=== PATIENT | female | born 1955 | race Caucasian/White ===

== ENCOUNTER 2016-11-29 08:26 | Inpatient (IN) ==
[2016-11-22 12:08] LABS: Basophils # (Auto) 0 K/mcL (0.0-0.3); Basophils % (Auto) 0.5 % (0.0-2.0); Eosinophils # (Auto) 0.1 K/mcL (0.0-0.7); Eosinophils % (Auto) 0.9 % (0.0-7.0); Granulocytes % (Auto) 54.7 % (38.0-78.0); Lymphocytes # (Auto) 2.2 K/mcL (1.5-4.8); Lymphocytes % (Auto) 35.6 % (15.5-49.0); Mean Corpuscular HGB Conc 33.1 g/dL (31.0-36.0); Mean Corpuscular Hemoglobin 28.4 pg (26.0-34.0); Monocytes # (Auto) 0.5 K/mcL (0.1-0.9); Monocytes % (Auto) 8.3 % (1.0-12.0); Platelet Count 284 K/mcL (140-440); RBC 4.54 M/mcL (4.00-5.20); Red Cell Distribution Width 13.7 % (11.5-14.5)
[2016-11-22 12:12] LABS: Blood Urea Nitrogen 9 mg/dl (8-23)
[2016-11-22 13:00] LABS: Appearance,Urine CLEAR; Bacteria,Urine 0 /hpf (0); Bilirubin,Urine NEG (NEG); Color,Urine YELLOW; Glucose,Urine (UA) NEGATIVE (NEG); Leukocyte Esterase,Urine NEG /uL (NEG); Mucus,Urine FEW /hpf (0); Nitrate,Urine NEG (NEG); Protein,Urine NEG (NEG); Specific Gravity,Urine 1.011 (1.000-1.035); Urine Blood 0.03 mg/dL (<0.03); Urine RBC < 1 /hpf (0-1); Urine Squamous Epithelial Cell 1 /hpf (0-4); Urine WBC < 1 /hpf (0-4); Urobilinogen,Urine NEG (NEG)
[~2016-11-29 08:26] MED LIST: CELECOXIB 200 MG CAPSULE PO SCH; PREGABALIN 75 MG CAPSULE PO SCH; ceFAZolin 1 GM VIAL IV SCH; oxyCODONE 10 MG TAB.ER.12H PO SCH
[2016-11-29] MEDS ORDERED: KETOROLAC 30 MG, ROPIVACAINE HCL/PF 49.5 ML, EPINEPHrine 0.5 MG, 0.9 % SODIUM CHLORIDE ... IJ ONE (09:00)
[2016-11-29] MEDS ORDERED: MIDAZOLAM 5 MG/5 ML VIAL IV ONE (11:50)
[2016-11-29] MEDS ORDERED: PROPOFOL 200 MG/20 ML VIAL IV ONE (11:50)
[2016-11-29] MEDS ORDERED: ROPIVACAINE HCL/PF 30 ML VIAL IJ ONE (11:50)
[2016-11-29] MEDS ORDERED: GLYCOPYRROLATE 0.2 MG/ML VIAL IV ONE (11:50)
[2016-11-29] MEDS ORDERED: DEXAMETHASONE 10 MG/ML VIAL IV ONE (11:50)
[2016-11-29] MEDS ORDERED: LIDOCAINE HCL/PF 100 MG/5 ML SYRINGE IV ONE (11:50)
[2016-11-29] MEDS ORDERED: PHENYLEPHRINE 10 MG/ML VIAL IV ONE (11:50)
[2016-11-29] MEDS ORDERED: ONDANSETRON 4 MG/2 ML VIAL IV ONE (11:50)
[2016-11-29] MEDS ORDERED: TRANEXAMIC ACID 1,000 MG/10 ML VIAL IV ONE (11:50)
[2016-11-29] MEDS ORDERED: diphenhydrAMINE 50 MG/ML VIAL IV ONE (11:50)
[2016-11-29] MEDS ORDERED: PROMETHAZINE 25 MG/ML VIAL IV PRN (12:58)
[2016-11-29] MEDS ORDERED: MEPERIDINE 25 MG/ML SYRINGE IV PRN (12:58)
[2016-11-29] MEDS ORDERED: FLUMAZENIL 0.1 MG/ML ML IV PRN (12:58)
[2016-11-29] MEDS ORDERED: HYDROmorphone 2 MG/ML SYRINGE IV PRN (12:58)
[2016-11-29] MEDS ORDERED: ONDANSETRON 4 MG/2 ML VIAL IV PRN ×2 (12:58→13:43)
[2016-11-29] MEDS ORDERED: fentaNYL 100 MCG/2 ML VIAL IV PRN (12:58)
[2016-11-29] MEDS ORDERED: METOPROLOL TARTRATE 5 MG/5 ML VIAL IV PRN (12:58)
[2016-11-29] MEDS ORDERED: METHOCARBAMOL 1,000 MG/10 ML VIAL IV PRN (12:58)
[2016-11-29] MEDS ORDERED: IPRATROPIUM/ALBUTEROL 3 ML AMPUL.NEB NEB PRN (12:58)
[2016-11-29] MEDS ORDERED: BENZOCAINE/MENTHOL 1 LOZENGE PO PRN ×2 (12:58→13:43)
[2016-11-29] MEDS ORDERED: NALOXONE HCL 0.4 MG/ML VIAL IV PRN (12:58)
[2016-11-29] MEDS ORDERED: diphenhydrAMINE 50 MG/ML VIAL IV PRN (12:58)
[2016-11-29] MEDS ORDERED: ATROPINE SULFATE 0.4 MG/ML VIAL IV PRN (12:58)
[2016-11-29] MEDS ORDERED: ePHEDrine 50 MG/ML AMPUL IV PRN (12:58)
[2016-11-29] MEDS ORDERED: LACTATED RINGERS 1,000 ML IV SCH (13:00)
[2016-11-29] MEDS ORDERED: TRANEXAMIC ACID 1,000 MG/10 ML VIAL IV SCH (13:43)
[2016-11-29] MEDS ORDERED: BISACODYL 10 MG SUPP.RECT PR PRN (13:43)
[2016-11-29] MEDS ORDERED: POLYETHYLENE GLYCOL 3350 17 GM PACKET PO PRN (13:43)
[2016-11-29] MEDS ORDERED: MAGNESIUM HYDROXIDE 30 ML ORAL.SUSP PO PRN (13:43)
[2016-11-29] MEDS ORDERED: FLEETS ADULT ENEMA PR PRN (13:43)
[2016-11-29] MEDS ORDERED: LORATADINE 10 MG TABLET PO PRN (13:47)
[2016-11-29] MEDS ORDERED: OXYMETAZOLINE 1 SPRAY BOTTLE NAS PRN (13:47)
--- NOTE | 2016-11-29 13:50 | Brief Operative Note ---
Date of procedure: 11/29/16 Pre-op diagnosis: R knee DJD Post-op diagnosis: same Procedure: Right robotic assisted total knee arthroplasty Grafts/Implants: Yes (Reading CR 4 femur, 4 tibia, 11mm tibial insert, 33 patella) Anesthesia: spinal, GLMA Findings: severe arthritis Complications: none Surgeon: Jonatan Rodas Typesetting Supervisor: Enrike Hayes Estimated blood loss (cc): 30 Specimens Removed/Pathology: none sent Condition: stable Disposition: PACU
--- NOTE | 2016-11-29 15:09 | XRay Report ---
HISTORY: Reason for Exam:Post-op total knee. FINDINGS: There is a well positioned total knee prosthesis. No fractures present and there are no abnormal soft tissue calcifications. IMPRESSION: Well-positioned right knee prosthesis Interpreted and Authenticated by: Tom Ayers 11/29/16
--- NOTE | 2016-11-29 15:22 | Operative Note ---
DATE OF OPERATION: 11/29/2016 PREOPERATIVE DIAGNOSIS: Right knee severe osteoarthritis. POSTOPERATIVE DIAGNOSIS: Right knee severe osteoarthritis. PROCEDURE PERFORMED: Right robotic-assisted total knee arthroplasty using the [employer]a Triathlon size 4 cruciate retaining femoral component, size 4 tibial baseplate, an 11 mm X3 tibial insert with a 33 mm patellar button. SURGEON: Jonatan Rodas MD. NUTRITION AIDE: Ez Hayes PA-C. ANESTHESIA: Spinal plus general. DRAINS: None. SPECIMENS: Bone cuts, which were discarded. BLOOD LOSS: 30 mL. POSTOPERATIVE CONDITION: Stable. INDICATIONS FOR SURGERY: This is a 61-year-old female who has had progressive worsening knee pain. She had a previous knee arthroscopy and radiographs showed rapid joint space collapse with [id number] lateral compartment arthrosis, as well as significant patellofemoral degenerative changes. FINDINGS AT SURGERY: There was full-thickness cartilage loss off the lateral compartment. The patella had also full-thickness cartilage loss. Post implantation showed good patellar tracking, joint stability and limb alignment. PROCEDURE IN DETAIL: The patient had been seen preoperatively and informed consent had been obtained after discussion of risks and benefits of surgery. Risks including, but not limited to, bleeding, possibly requiring transfusion; infection, possibly requiring implant removal and prolonged IV antibiotics; injury to nerves, blood vessels, and other surrounding structures; anesthetic risks; incomplete or no resolution of symptoms; stiffness; weakness; pain; instability; DVT and pulmonary embolus risks; the possibility of needing further surgery. She understood these risks and wished to proceed. Correct operative site was marked and then patient received spinal anesthesia. She was then taken to the operating room and LMA general given. The right lower extremity was carefully prepped and draped in normal sterile fashion and a time-out was performed verifying patient name, operative site, and plan. Esmarch was used to exsanguinate the extremity and tourniquet was inflated. A midline incision was made with a scalpel through skin and subcutaneous tissue. Irrisept was irrigated and then a medial parapatellar arthrotomy made. Subperiosteal exposure done of the anterior medial tibia and then the distal anterior cortex of the femur. The retropatellar fat pad was excised. We then made stab incisions over the femur and tibia and drilled two pins bicortically in both the femur and the tibia. We then placed our arrays. Femoral checkpoint and tibial checkpoint was placed. We then registered our hip center of rotation, as well as medial and lateral malleoli. The femoral and tibial check points were double checked. We then used the blue probe to register our data points. After this was completed, we then removed osteophytes. We then checked our flexion and extension gaps. We adjusted implant alignment to equalize these around 19 mm. Once we were satisfied with our position, we went ahead and started with bone cuts using the robotic assisted saw. After bone cuts were completed, we marked our alignment points for the tibial baseplate and then tibial trial was pinned into place. We did our boss reamer and keel punch to prepare and then went ahead and placed an 11 insert. We then impacted our femoral trial and pinned this into place. We drilled our peg holes. The knee was taken into extension, and there was full extension without laxity. We then prepared the patella. Using a freehand technique we removed 8 mm of bone. We sized this to a 33, which was medialized maximally and drilled. Trial was placed and lateral facetectomy performed. We then checked our patellar tracking, which was excellent with no tilt or subluxation, so we removed all of our trial implants. Definitive implants were opened. We irrigated copiously. We irrigated with Irrisept while cement was being mixed. After waiting a minute, we irrigated copiously with saline. Antibiotic cement was then placed on the tibia and the tibia implant was impacted followed by the femur. We did use a CO2 gun to a clean and dry the bone surface. We then placed an [address] The knee was placed in full extension. Excess cement removed. The patellar button was cemented. We then filled the joint with Irrisept, and while this was sitting we injected the pericapsular and subcutaneous tissues with pain cocktail. We then suctioned out the Irrisept and copiously pulse lavaged with saline until cement had fully hardened. We then flexed the knee up and removed trial implant, removed any excess cement. Remaining pain cocktail was injected into the posteromedial capsule and then an 11 mm insert was impacted and carefully verified to be fully seated. We then placed the knee in about 45 degrees of flexion and irrigated the joint with Irrisept. A #2 FiberWire interrupted [id number]-ahstd was placed in the superior quadrant around the patella, inferiorly was #1 Vicryl [id number]. Running #1 Vicryl was used for patellar tendon and quad tendon. We then did a final Irrisept irrigation, after a minute final saline irrigation, and then 2-0 Monocryl for subcutaneous and catherine for skin. Xeroform and sterile dressing were applied and tourniquet was released. The patient was then awakened, extubated, and transferred to recovery in stable condition. [email or web address] Job ID: [id number] Doc ID: [id number] Jonatan Rodas MD
[2016-11-29] MEDS: 0.9 % SODIUM CHLORIDE 1,000 ML IV SCH ×2 (15:39→16:30)
[2016-11-29] MEDS: 0.9 % SODIUM CHLORIDE 10 ML SYRINGE IV SCH ×2 (15:40→22:26)
[2016-11-29] MEDS: oxyCODONE/APAP 5/325MG TABLET PO PRN ×2 (16:16→20:53)
[2016-11-29] MEDS: KETOROLAC 30 MG/ML VIAL IV SCH ×2 (17:51→23:46)
[2016-11-29] MEDS: ceFAZolin 1 GM VIAL IV SCH (19:27)
[2016-11-29] MEDS: ASPIRIN 325 MG ENTERIC COATED TABLET PO SCH (20:53)
[2016-11-29] MEDS: DOCUSATE SODIUM 100 MG CAPSULE PO SCH (20:53)
[2016-11-29] MEDS ORDERED: SENNOSIDES 1 TABLET PO SCH (21:00)
[2016-11-30] MEDS: oxyCODONE/APAP 5/325MG TABLET PO PRN ×2 (01:06→05:13)
[2016-11-30] MEDS: 0.9 % SODIUM CHLORIDE 1,000 ML IV SCH ×2 (01:06→06:12)
[2016-11-30] MEDS: ceFAZolin 1 GM VIAL IV SCH (03:32)
[2016-11-30] MEDS: KETOROLAC 30 MG/ML VIAL IV SCH ×2 (05:12→12:18)
[2016-11-30] MEDS: 0.9 % SODIUM CHLORIDE 10 ML SYRINGE IV SCH (05:19)
--- NOTE | 2016-11-30 07:57 | Discharge Summary ---
Ortho Discharge - TKA - Patient Instructions Diet: Regular Diet Activity: activity as tolerated, weight bearing as tolerated Total Knee Protocol: For Total Knee: Start ROM AMADO with stationary bike or rocking chair. Work on gaining full extension of knee. Posterior dislocation precautions provided. Hip abductor strengthening and gait training instructions provided. Apply Cryocuff as instructed. Dressing Care: Aquacel Ag - leave on for 5 days Patient Education: Total Knee Replacement (DC) Additional Instructions: Discharge Instructions: Do the exercises at home that physical therapy gave you. Take your prescription, photo ID, insurance cards, and current medication list with you to your first physical therapy appointment. 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 Weight bearing as tolerated. You have Dermabond (a dressing with a mesh-like appearance), leave open to air. You may start showering on post op day #2. To avoid constipation while taking any narcotic pain medication, take an over the counter stool softener/laxative. Use your Cryocuff or ice packs as directed, on for 20 minutes at a time throughout the day. This and elevation will help with pain and swelling. Call your physician for fevers above 100.5 or pain not controlled by medication. Your prescriptions are with your discharge information. Some medications were electronically transmitted to your pharmacy of choice. - Follow Up Plan Follow Up Appointments: Jonatan Rodas MD [Physician] - Disposition: Home, Self-Care Prognosis: Good Rehab Potential: Good - Orders For Discharge Additional Discharge Orders: Physical Therapy at Discharge - TKA Location: Determined By Patient Toilet Riser Discharge Order Location: Determined By Patient Walker Location: Determined By Patient
--- NOTE | 2016-11-30 08:40 | Orthopedic Progress Note ---
Subjective Patient information: Note initiated : 11/30/16 at 8:38 am Service Date, if different from initiated Date: [] Patient: Neri Chapman 61 y/o F admitted on 11/29/16 for Right Total Knee Arthroplasty- Robotic *!commercial artist lettering!*. Chief Complaint: [] Principal diagnosis: s/p R TKA Interval history: pain controlled with orals Objective Vital signs: Vital Signs Temp Pulse Pulse Resp BP BP Pulse Ox 11/30/16 07:45 97.8 F 16 112/75 95 11/30/16 07:19 58 L 96 11/30/16 03:30 97.9 F 73 16 114/78 94 11/30/16 00:00 97.6 F 65 16 127/85 96 11/29/16 20:00 95.1 F L 92 H 16 137/79 95 11/29/16 18:00 89 14 135/86 96 11/29/16 17:25 64 14 128/65 99 11/29/16 17:11 94 11/29/16 17:05 63 14 120/82 97 11/29/16 16:35 72 16 129/85 100 11/29/16 16:00 97.3 F 14 128/68 100 11/29/16 15:50 69 14 122/69 100 11/29/16 15:35 73 14 121/71 100 11/29/16 15:20 97.3 F 79 12 120/81 100 11/29/16 15:06 97.2 F 92 H 17 140/77 94 11/29/16 14:58 92 H 16 137/93 99 11/29/16 14:43 90 16 130/79 100 11/29/16 14:28 93 H 12 137/80 100 11/29/16 14:13 94 H 14 161/72 98 11/29/16 14:08 98.2 F 105 H 16 133/84 97 Intake and Output 11/29/16 11/30/16 11/30/16 21:59 05:59 13:59 Intake Total 2646 / 2646 1000 / 1000 1399 / 1399 Output Total 750 / 750 875 / 875 300 / 300 Balance 1896 / 1896 125 / 125 1099 / 1099 Intake: IV 1806 / 1806 1000 / 1000 679 / 679 Sodium Chloride 0.9% 1, 106 / 106 1000 / 1000 679 / 679 000 ml @ 125 mls/hr IV . Q8H ANTHONY Rx#:[id number] Lactated Ringers 1,000 ml 1700 / 1700 @ 20 mls/hr IV .Q24H ANTHONY Rx#:[id number] Oral 840 / 840 0 / 0 720 / 720 Output: Void Amount 750 / 750 875 / 875 300 / 300 Other: Meal apple sauce cup apple sauce cup Breakfast Percent of Meal Consumed 100% 100% 100% # Voids 1 1 1 Weight 228 lb Intake & Output: Intake & Output 11/29/16 11/30/16 11/30/16 21:59 05:59 13:59 Intake Total 2646 / 2646 1000 / 1000 1399 / 1399 Output Total 750 / 750 875 / 875 300 / 300 Balance 1896 / 1896 125 / 125 1099 / 1099 Weight 228 lb Intake: IV 1806 / 1806 1000 / 1000 679 / 679 Sodium Chloride 0.9% 1, 106 / 106 1000 / 1000 679 / 679 000 ml @ 125 mls/hr IV . Q8H ANTHONY Rx#:[id number] Lactated Ringers 1,000 ml 1700 / 1700 @ 20 mls/hr IV .Q24H ANTHONY Rx#:[id number] Oral 840 / 840 0 / 0 720 / 720 Output: Void Amount 750 / 750 875 / 875 300 / 300 Other: Meal apple sauce cup apple sauce cup Breakfast Percent of Meal Consumed 100% 100% 100% # Voids 1 1 1 Dressing: Yes clean, Yes dry, Yes intact - Labs CBC & BMP: 11/30/16 06:09 11/22/16 10:46 Labs: Orthopedic Labs 11/22/16 10:46 PT 12.9 INR 1.0 11/30/16 11/22/16 06:09 10:46 Hgb 11.8 L 12.9 Hct 36.2 39.0 Assessment and Plan (1) S/P total knee arthroplasty POD#1 s/p R TKA-stable -poss d/c home today Status: Acute
[2016-11-30] MEDS ORDERED: CALCIUM W/VIT D3 500 MG TABLET PO SCH (09:00)
[2016-11-30] MEDS: DOCUSATE SODIUM 100 MG CAPSULE PO SCH (09:16)
[2016-11-30] MEDS: ASPIRIN 325 MG ENTERIC COATED TABLET PO SCH (09:17)
== END 2016-11-30 13:00 | disposition home or self-care (01) | DRG 470 ==
LOC: MEDSUR 08:26
PROVIDERS: ADMIT Orthopaedic Surgery; ATTEND Orthopaedic Surgery